=== PATIENT | female | born 1995 | race Caucasian/White ===

== ENCOUNTER 2016-09-26 18:40 | Emergency (ER) | payer BC ==
[2016-09-26 20:44] LABS: CHLORIDE,CL 109 mmol/L (98-110); SODIUM,NA 145 mmol/L (136-146)
[2016-09-26 20:50] LABS: ACETAMINOPHEN < 3.0 ug/mL
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
[2016-09-26 21:58] VITALS: BP 146/102
== END 2016-09-26 21:45 ==
LOC: MW.ED 18:40
DX: T14.91 Suicide attempt (principal); I10 Essential (primary) hypertension; F41.9 Anxiety disorder, unspecified; Z95.2 Presence of prosthetic heart valve; F32.9 Major depressive disorder, single episode, unspecified; Z79.82 Long term (current) use of aspirin; Z79.899 Other long term (current) drug therapy; F17.210 Nicotine dependence, cigarettes, uncomplicated; X78.8XXA Intentional self-harm by other sharp object, initial encounter
CPT/HCPCS: 36415; 80053; 80305; 81001; 81025; 83735; 84443; 84481; 85025; 93005; 99285; G0480; 99284

== ENCOUNTER 2020-07-29 04:04 | Emergency (ER) | payer BC ==
[2020-07-29] MEDS ORDERED: Sodium Chloride 0.9% 2.5 ML Syringe FLUSH PRN (04:11)
[2020-07-29] MEDS ORDERED: Sodium Chloride 0.9% 10 ML Syringe FLUSH PRN (04:11)
--- NOTE | 2020-07-29 04:16 | EDM.PDOC ---
ED HPI GENERAL MEDICAL PROBLEM - General Chief Complaint: Upper Extremity Injury/Pain Stated Complaint: RIGHT SHOULDER PAIN Time Seen by Provider: 07/29/20 04:07 - History of Present Illness INITIAL COMMENTS - FREE TEXT/NARRATIVE: History of present illness: [] Patient complains of severe pain and difficulty moving the right shoulder. Her boyfriend said that she was shaking from side to side as though she was having a seizure. When she woke up she did not know his name and was confused gradually returning to baseline. The patient now has pain in the right shoulder that makes it difficult to move the right shoulder. The patient has had multiple strokes and 2 replaced heart valves. She is on warfarin and aspirin. The boyfriend is able to give a good history. What he describes sounds like a tonic-clonic seizure. Her movement woke him up. She was asleep but she was having tonic-clonic motions that were symmetric. After they stop she did not wake up for 2 to 3 minutes. When she woke up she was unsteady and could not stand. She did not know his name. She was confused and looking for Tylenol and the spice rack. She adds that she had a difficult time little more than 6 months ago and was drinking more than she thinks she should for about 6 months. She stopped 3 days ago and thinks that that might be a contributor to her first and only seizure. Last p.o. intake was dinnertime last night. Is a past history of congenital heart disease. She had a pulmonic valve replacement and an aortic valve replacement and at least one of them is combination of tissue and metal. Prior history of strokes as well. Review of systems: As per history of present illness and below otherwise all systems reviewed and negative. Past medical history: As per history of present illness and as reviewed below otherwise noncontributory. Surgical history: As per history of present illness and as reviewed below otherwise noncontributory. Social history: No reported history of drug or alcohol abuse. Family history: As per history of present illness and as reviewed below otherwise noncontributory. Physical exam: Constitutional - well developed, well-nourished and in no acute distress HEENT - normocephalic, no evidence of trauma - external nose and mouth normal - no mass in neck and no JVD - mucosae moist EYES - full EOM, PERRL, no icterus - no evidence of inflammation, injection, or drainage Respiratory - no respiratory distress, equal bilateral expansion, lungs clear to auscultation and no abnormal lung sounds Cardiovascular - Regular Rhythm with S1 and S2 appreciated and no murmur, gallop or rub. GI - abdomen soft without distension or organomegaly - normal bowel sounds - no guard or rebound Musculoskeletal and tenderness in the right shoulder with very limited range of motion otherwise no gross deformity of long bones or joints - no tenderness, swelling or edema Neurologic - Alert and oriented times four - CN II-XII grossly intact - motor sensory and coordination symmetrically normal as best I can tell although the exam of the right upper extremity does not include raising the arm in extension for drift because she has such limited range of motion and pain in the right shoulder. Psychiatric - appropriate mood and affect with normal thought content Hematologic - No petechiae or purpura - mucosa appropriate color and sclera not pale - normal nail bed color and refill Integument - no rash or evidence of trauma - normal turgor Diagnostics: [] Therapeutics: [] Impression: [] Plan: [] Definitive disposition and diagnosis as appropriate pending reevaluation and review of above. right shoulder Pain Score (Numeric/FACES): 4 - Related Data Allergies Allergy/AdvReac Type Severity Reaction Status Date / Time No Known Allergies Allergy Verified 07/29/20 04:12 Home Meds: Home Meds Aspirin 81 mg PO DAILY 09/26/16 [History] Lisinopril 20 tab PO DAILY 09/26/16 [History] Warfarin [Coumadin] mg PO DAILY 07/29/20 [History] Past Medical History HEENT History: Reports: None Cardiovascular History: Reports: Hypertension Other Cardiovascular History: aortic stenosis, pulmonary stenosis,coartation of aorta Respiratory History: Reports: None Gastrointestinal History: Reports: None Genitourinary History: Reports: None [employer] History: Reports: None Musculoskeletal History: Reports: None Neurological History: Reports: None Psychiatric History: Reports: Anxiety, Depression, Suicide Attempt, Suicidal Ideation Endocrine/Metabolic History: Reports: None Hematologic History: Reports: None Immunologic History: Reports: None Oncologic (Cancer) History: Reports: None Dermatologic History: Reports: None - Infectious Disease History Infectious Disease History: Reports: None - Past Surgical History Cardiovascular Surgical History: Reports: Valve Replacement, Other (See Below) Other Cardiovascular Surgeries/Procedures: stents replace Social & Family History - Family History Family Medical History: No Pertinent Family History - Caffeine Use Caffeine Use: Reports: Energy Drinks, Soda Review of Systems - Review of Systems Review Of Systems: Comprehensive ROS is negative, except as noted in HPI. ED EXAM, GENERAL - Physical Exam Exam: See Below Free Text/Narrative:: My physical exam is in the HPI #1 Interpretation EKG Interpretation Comments: EKG done at 4:10 AM shows an AV dual paced complex with a heart rate of 64 and an axis of -81. She has a QRS duration of 66 ms. Comparison to her EKG is not valid because the only prior on the record was her intrinsic rhythm and not paced. In paced rhythm Course - Vital Signs Text/Narrative:: the patient has a CT that is been read and there is no obvious bleed or acute infarct. The patient does have one area in the lisa that was indeterminate and in the differential was an age indeterminate spot with blood products. Case discussed with Jack from anesthesia and Dr. Canseco will see the patient and evaluate for possible sedation and reduction. Dr. Veliz came to the department at 7:00. For he agreed to sedate the patient so that I can try to reduce the shoulder we looked over the CT report and then the final report the radiologist as stated there is an area of lucency near the lisa that may represent blood. With new onset seizure on blood thinners with a CT that is indeterminate for possible bleed and a posterior dislocation in a facility that has no orthopedics I called [facility] and discussed with Dr. Marifer Costello who most graciously agreed that he accept the patient and arrange her care. Last Recorded V/S: Last Vital Signs Temp 36.6 C 07/29/20 04:08 Pulse 97 07/29/20 07:54 Resp 17 07/29/20 07:54 BP 129/55 L 07/29/20 07:54 Pulse Ox 97 07/29/20 07:54 - Orders/Labs/Meds Orders: Active Orders 24 hr Category Date Time Status Saline Lock Insert [OM.PC] Stat Oth 07/29/20 04:11 Ordered Labs: Laboratory Tests 07/29/20 07/29/20 07/29/20 Range/Units 04:35 04:35 04:35 WBC 6.33 (4.0-11.0) K/uL RBC 3.62 L (4.30-5.90) M/uL Hgb 12.9 (12.0-16.0) g/dL Hct 38.6 (36.0-46.0) % MCV 106.6 H (80.0-98.0) fL MCH 35.6 H (27.0-32.0) pg MCHC 33.4 (31.0-37.0) g/dL RDW Std Deviation 54.6 (28.0-62.0) fl RDW Coeff of Kj 14 (11.0-15.0) % Plt Count 141 L (150-400) K/uL MPV 9.80 (7.40-12.00) fL Neut % (Auto) 73.0 (48.0-80.0) % Lymph % (Auto) 14.7 L (16.0-40.0) % [place] % (Auto) 11.5 (0.0-15.0) % Eos % (Auto) 0.5 (0.0-7.0) % Baso % (Auto) 0.3 (0.0-1.5) % Neut # (Auto) 4.6 (1.4-5.7) K/uL Lymph # (Auto) 0.9 (0.6-2.4) K/uL [place] # (Auto) 0.7 (0.0-0.8) K/uL Eos # (Auto) 0.0 (0.0-0.7) K/uL Baso # (Auto) 0.0 (0.0-0.1) K/uL Nucleated RBC % 0.0 /100WBC Nucleated RBCs # 0 K/uL INR 1.06 Sodium 138 (136-145) mmol/L Potassium 3.4 L (3.5-5.1) mmol/L Chloride 100 (98-107) mmol/L Carbon Dioxide 26.2 (21.0-32.0) mmol/L BUN 13 (7.0-18.0) mg/dL Creatinine 0.8 (0.6-1.0) mg/dL Est Cr Clr Drug Dosing 111.37 mL/min Estimated GFR (MDRD) > 60.0 ml/min Glucose 112 H (74-106) mg/dL Calcium 9.0 (8.5-10.1) mg/dL Magnesium 1.9 (1.8-2.4) mg/dL Total Bilirubin 1.7 H (0.2-1.0) mg/dL AST 69 H (15-37) IU/L ALT 45 (14-63) IU/L Alkaline Phosphatase 63 (46-116) U/L Troponin I (0.000-0.056) ng/mL Total Protein 7.6 (6.4-8.2) g/dL Albumin 3.9 (3.4-5.0) g/dL Globulin 3.7 (2.6-4.0) g/dL Albumin/Globulin Ratio 1.1 (0.9-1.6) Prolactin ng/mL HCG, Qual (NEG) 07/29/20 07/29/20 07/29/20 Range/Units 04:35 04:35 04:35 WBC (4.0-11.0) K/uL RBC (4.30-5.90) M/uL Hgb (12.0-16.0) g/dL Hct (36.0-46.0) % MCV (80.0-98.0) fL MCH (27.0-32.0) pg MCHC (31.0-37.0) g/dL RDW Std Deviation (28.0-62.0) fl RDW Coeff of Kj (11.0-15.0) % Plt Count (150-400) K/uL MPV (7.40-12.00) fL Neut % (Auto) (48.0-80.0) % Lymph % (Auto) (16.0-40.0) % [place] % (Auto) (0.0-15.0) % Eos % (Auto) (0.0-7.0) % Baso % (Auto) (0.0-1.5) % Neut # (Auto) (1.4-5.7) K/uL Lymph # (Auto) (0.6-2.4) K/uL [place] # (Auto) (0.0-0.8) K/uL Eos # (Auto) (0.0-0.7) K/uL Baso # (Auto) (0.0-0.1) K/uL Nucleated RBC % /100WBC Nucleated RBCs # K/uL INR Sodium (136-145) mmol/L Potassium (3.5-5.1) mmol/L Chloride (98-107) mmol/L Carbon Dioxide (21.0-32.0) mmol/L BUN (7.0-18.0) mg/dL Creatinine (0.6-1.0) mg/dL Est Cr Clr Drug Dosing mL/min Estimated GFR (MDRD) ml/min Glucose (74-106) mg/dL Calcium (8.5-10.1) mg/dL Magnesium (1.8-2.4) mg/dL Total Bilirubin (0.2-1.0) mg/dL AST (15-37) IU/L ALT (14-63) IU/L Alkaline Phosphatase (46-116) U/L Troponin I < 0.050 (0.000-0.056) ng/mL Total Protein (6.4-8.2) g/dL Albumin (3.4-5.0) g/dL Globulin (2.6-4.0) g/dL Albumin/Globulin Ratio (0.9-1.6) Prolactin 31.7 ng/mL HCG, Qual NEGATIVE (NEG) Meds: Medications Discontinued Medications Generic Name Dose Route Start Last Admin Trade Name Freq PRN Reason Stop Dose Admin Chlordiazepoxide HCl 50 mg 07/29/20 08:52 07/29/20 08:58 Chlordiazepoxide 25 Mg Cap PO 07/29/20 08:53 50 mg ONETIME ONE Administration Hydromorphone HCl 0.5 mg 07/29/20 05:37 07/29/20 05:42 Hydromorphone 1 Mg/Ml Syringe IVPUSH 07/29/20 05:38 0.5 mg ONETIME ONE Administration Hydromorphone HCl 1 mg 07/29/20 05:52 07/29/20 06:48 Hydromorphone 1 Mg/Ml Syringe IVPUSH 07/29/20 05:53 1 mg ONETIME ONE Administration Hydromorphone HCl 0.5 mg 07/29/20 10:09 07/29/20 10:15 Hydromorphone 2 Mg/Ml Syringe IVPUSH 07/29/20 10:10 0.5 mg ONETIME ONE Administration Morphine Sulfate 4 mg 07/29/20 04:29 07/29/20 04:36 Morphine 4 Mg/Ml Syringe IVPUSH 07/29/20 04:30 4 mg ONETIME ONE Administration Ondansetron HCl 4 mg 07/29/20 04:29 07/29/20 04:36 Ondansetron 4 Mg/2 Ml Sdv IVPUSH 07/29/20 04:30 4 mg ONETIME ONE Administration Ondansetron HCl 4 mg 07/29/20 08:23 07/29/20 08:28 Ondansetron 4 Mg/2 Ml Sdv IVPUSH 07/29/20 08:24 4 mg ONETIME ONE Administration Sodium Chloride 10 ml 07/29/20 04:11 07/29/20 04:37 Sodium Chloride 0.9% 10 Ml Syringe FLUSH 10 ml ASDIRECTED PRN Administration Keep Vein Open Sodium Chloride 2.5 ml 07/29/20 04:11 07/29/20 04:37 Sodium Chloride 0.9% 2.5 Ml Syringe FLUSH 2.5 ml ASDIRECTED PRN Administration Keep Vein Open Departure - Departure Time of Disposition: 10:29 Disposition: DC/Tfer to [facility] 02 Clinical Impression: Posterior dislocation of right shoulder joint, New onset seizure without head trauma - Discharge Information Referrals: PCP,None [Primary Care Provider] - Forms: ED Department Discharge Sepsis Event Note (ED) - Evaluation Sepsis Screening Result: No Definite Risk - Focused Exam Vital Signs: Vital Signs Pulse Resp BP Pulse Ox 07/29/20 07:54 97 17 129/55 L 97 - My Orders Last 24 Hours: My Active Orders 07/29/20 04:11 Saline Lock Insert [OM.PC] Stat - Assessment/Plan Last 24 Hours: My Active Orders 07/29/20 04:11 Saline Lock Insert [OM.PC] Stat
[2020-07-29] MEDS ORDERED: Ondansetron 4 MG/2 ML SDV IVPUSH ONE ×2 (04:29→08:23)
[2020-07-29] MEDS ORDERED: Morphine 4 MG/ML Syringe IVPUSH ONE (04:29)
[2020-07-29 05:00] LABS: BLOOD UREA NITROGEN,BUN 13 mg/dL (7.0-18.0); CARBON DIOXIDE,CO2 26.2 mmol/L (21.0-32.0); CHLORIDE,CL 100 mmol/L (98-107); GLUCOSE RANDOM 112 mg/dL (74-106); POTASSIUM,K 3.4 mmol/L (3.5-5.1); SODIUM,NA 138 mmol/L (136-145)
--- NOTE | 2020-07-29 05:36 | CR ---
Indication: Pain and limited range of motion, following a seizure Technique: Two views of the right shoulder Comparison: None available Findings/Impression: Bones: Apparent posterior dislocation/subluxation of the humeral head in relation to the glenoid. No displaced fracture seen. Joint spaces: Unremarkable. Soft tissues: Unremarkable. Dictated by Klaus Ayala MD @ Jul 29 2020 5:31AM Signed by Dr. Klaus Ayala @ Jul 29 2020 5:34AM
[2020-07-29] MEDS ORDERED: HYDROmorphone 1 MG/ML Syringe IVPUSH ONE ×2 (05:37→05:52)
--- NOTE | 2020-07-29 05:46 | CT ---
INDICATION: Seizure. Right upper extremity weakness TECHNIQUE: CT head without contrast. COMPARISON: None available FINDINGS: There is mild cerebral and cerebellar cortical atrophy for age. The ventricles are within normal limits. There is a left middle cranial fossa arachnoid cyst. There is no midline shift. 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 There is no loss of vasquez-white differentiation. A small ill-defined focus of increased attenuation in the anterior lisa on image 14 could be related to regional artifact. There is no evidence of an acute extra-axial hemorrhage. No acute calvarial fracture is seen. There is a left maxillary sinus mucosal retention cyst or polyp. The mastoid air cells are clear. The visualized orbits are within normal limits. IMPRESSION: No evidence of an acute extra-axial hemorrhage, mass effect or loss of vasquez-white differentiation. A high attenuation focus in the anterior lisa could be related to regional artifact or may represent a nonspecific regional parenchymal calcification. A focus of age indeterminate parenchymal blood products cannot be excluded, although there are no findings of significant trauma. If clinically indicated, correlate with a short-term follow-up study in 4-8 hours. Mild cerebral and cerebellar atrophy for age. Focal encephalomalacia in the posteromedial left occipital lobe. A left temporal arachnoid cyst. Please note that all CT scans at this facility use dose modulation, iterative reconstruction, and/or weight-based dosing when appropriate to reduce radiation dose to as low as reasonably achievable. Dictated by Klaus Ayala MD @ Jul 29 2020 5:31AM Signed by Dr. Klaus Ayala @ Jul 29 2020 5:44AM
[2020-07-29 08:19] VITALS: BP 129/55; PULSE 97
[2020-07-29] MEDS ORDERED: chlordiazePOXIDE 25 MG Cap PO ONE (08:52)
[2020-07-29] MEDS ORDERED: HYDROmorphone 2 MG/ML Syringe IVPUSH ONE (10:09)
== END 2020-07-29 10:29 ==
LOC: MW.ED 04:04
DX: S43.024A Posterior dislocation of right humerus, initial encounter (principal); R56.9 Unspecified convulsions; I10 Essential (primary) hypertension; Z79.82 Long term (current) use of aspirin; Z86.73 Personal history of transient ischemic attack (TIA), and cerebral infarction without residual deficits; Z95.4 Presence of other heart-valve replacement; Z79.01 Long term (current) use of anticoagulants; Z79.899 Other long term (current) drug therapy; X58.XXXA Exposure to other specified factors, initial encounter
CPT/HCPCS: 36415; 70450; 73030; 80053; 83735; 84146; 84484; 84703; 85025; 85610; 96374; 96375; 96376; 99284; A9270; J1170; J2270; J2405; 93010

== ENCOUNTER 2022-08-12 06:27 | Emergency (ER) | payer BC, OTHER ==
[2022-08-12] MEDS ORDERED: Acetaminophen 325 MG Tab PO ONE (06:53)
[2022-08-12 07:41] LABS: CORONAVIRUS COVID-19 NAA NEGATIVE (NEGATIVE); INFLUENZA A NAA NEGATIVE (NEGATIVE); INFLUENZA B NAA NEGATIVE (NEGATIVE)
[2022-08-12 08:03] VITALS: BP 137/64; PULSE 69
== END 2022-08-12 07:55 | disposition home or self-care (01) ==
LOC: MW.ED 06:27
DX: J06.9 Acute upper respiratory infection, unspecified (principal); I10 Essential (primary) hypertension; Z20.822 Contact with and (suspected) exposure to COVID-19; Z79.01 Long term (current) use of anticoagulants; Z79.82 Long term (current) use of aspirin; Z79.899 Other long term (current) drug therapy; Z95.0 Presence of cardiac pacemaker
CPT/HCPCS: 0240U; 99283; A9270